=== PATIENT | male | born 1965 | race American Indian/Alaskan Native ===

== ENCOUNTER 2018-05-25 10:18 | Emergency (ER) | payer OTHER ==
--- NOTE | 2018-05-25 11:22 | ER ---
Nurse's Notes [facility] Name: Tirso Resendez Age: 52 yrs Sex: Male : 1965 Arrival Date: 05/25/2018 Time: 10:19 Bed 11 Private MD: Diagnosis: Injury of muscle, fascia and tendon of other parts of biceps Presentation: 05/25 10:29 Presenting complaint: Patient states: L arm pain x 3 weeks, states that pain was ph radiating from L neck down L arm but now only c/o L upper arm pain, denies injury, no redness or swelling noted. Transition of care: patient was not received from another setting of care. Onset of symptoms was May 25, 2018. Risk Assessment: Do you want to hurt yourself or someone else? Patient reports no desire to harm self or others. Initial Sepsis Screen: Does the patient meet any 2 criteria? No. Patient's initial sepsis screen is negative. Does the patient have a suspected source of infection? No. Patient's initial sepsis screen is negative. Care prior to arrival: None. 10:29 Method Of Arrival: Ambulatory ph 10:29 Acuity: ASHLEY 4 ph Historical: - Allergies: 10:35 No Known Allergies; ph - Home Meds: 10:35 amlodipine oral [Active]; ph - PMHx: 10:35 Hypertension; ph - Immunization history:: Adult Immunizations unknown. - Social history:: Smoking status: unknown. - Ebola Screening: : No symptoms or risks identified at this time. Screenin:11 Abuse screen: Denies threats or abuse. Denies injuries from another. Nutritional ph screening: No deficits noted. Tuberculosis screening: No symptoms or risk factors identified. Fall Risk None identified. Assessment: 11:10 General: Appears in no apparent distress. comfortable, slender, well groomed, Behavior ph is calm, cooperative, appropriate for age. Pain: Complains of pain in left bicep. Neuro: Level of Consciousness is awake, alert, obeys commands, Oriented to person, place, time, situation. Cardiovascular: Capillary refill < 3 seconds in bilateral fingers Patient's skin is warm and dry. Pulses are palpable in right radial artery and left radial artery. Respiratory: Airway is patent Respiratory effort is even, unlabored, Denies shortness of breath. Derm: Skin is intact, is healthy with good turgor, Skin is pink, warm \T\ dry. Musculoskeletal: Circulation, motion, and sensation intact. Range of motion: intact in all extremities. Vital Signs: 10:35 BP 154 / 87; Pulse 73; Resp 18; Temp 97.8; Pulse Ox 98% on R/A; ph ED Course: 10:19 Patient arrived in ED. as 10:32 Triage completed. ph 10:33 Blanka Justin RN is Primary Nurse. ph 10:36 Arm band placed on Patient placed in an exam room. ph 10:56 Silviano Bazzi MD is Attending Physician. gs 11:11 Patient has correct armband on for positive identification. Bed in low position. Call ph light in reach. 11:12 No provider procedures requiring assistance completed. Patient did not have IV access ph during this emergency room visit. 11:20 Benigno Crowley MD is Referral Physician. gs Administered Medications: No medications were administered Outcome: 11:22 Discharge ordered by . 11:37 Discharged to home ambulatory. 11:37 Condition: good 11:37 Discharge instructions given to patient, Instructed on discharge instructions, follow up and referral plans. medication usage, Demonstrated understanding of instructions, follow-up care, medications, Prescriptions given X 1. 11:38 Patient left the ED. ss Signatures: Vicki Trivedi Shelby, RN RN Blanka Justin RN RN Silviano Bazzi MD MD
--- NOTE | 2018-05-25 11:22 | EDPHYS ---
Physician Documentation [facility] Name: Tirso Resendez Age: 52 yrs Sex: Male : 1965 Arrival Date: 05/25/2018 Time: 10:19 Bed 11 Private MD: ED Physician Silviano Bazzi HPI: 05/25 11:13 This 52 yrs old Male presents to ER via Ambulatory with complaints of Shoulder Pain, gs Neck Pain, >24Hrs Old. 11:13 The patient or guardian complains of an injury, pain. left shoulder and left bicep. gs Context: resulted from lifting or carrying. Onset: The symptoms/episode began/occurred 3 week(s) ago. Modifying factors: The symptoms are aggravated by lifting weight, movement. Associated signs and symptoms: Pertinent negatives: Numbness in left arm. Severity of symptoms: At their worst the symptoms were moderate, in the emergency department the symptoms are unchanged. The patient has experienced similar episodes in the past, a few times. The patient has been recently seen by a physician: 2 week(s) ago, with similar presenting complaints, X-rays were performed, outside ED. Historical: - Allergies: 10:35 No Known Allergies; ph - Home Meds: 10:35 amlodipine oral [Active]; ph - PMHx: 10:35 Hypertension; ph - Immunization history:: Adult Immunizations unknown. - Social history:: Smoking status: unknown. - Ebola Screening: : No symptoms or risks identified at this time. ROS: 11:13 All other systems are negative. gs Exam: 11:13 Head/Face: Normocephalic, atraumatic. Eyes: Pupils equal round and reactive to light, gs extra-ocular motions intact. Lids and lashes normal. Conjunctiva and sclera are non-icteric and not injected. Cornea within normal limits. Periorbital areas with no swelling, redness, or edema. ENT: Nares patent. No nasal discharge, no septal abnormalities noted. Tympanic membranes are normal and external auditory canals are clear. Oropharynx with no redness, swelling, or masses, exudates, or evidence of obstruction, uvula midline. Mucous membranes moist. Neck: Trachea midline, no thyromegaly or masses palpated, and no cervical lymphadenopathy. Supple, full range of motion without nuchal rigidity, or vertebral point tenderness. No Meningismus. Chest/axilla: Normal chest wall appearance and motion. Nontender with no deformity. No lesions are appreciated. Cardiovascular: Regular rate and rhythm with a normal S1 and S2. No gallops, murmurs, or rubs. Normal PMI, no JVD. No pulse deficits. Respiratory: Lungs have equal breath sounds bilaterally, clear to auscultation and percussion. No rales, rhonchi or wheezes noted. No increased work of breathing, no retractions or nasal flaring. Abdomen/GI: Soft, non-tender, with normal bowel sounds. No distension or tympany. No guarding or rebound. No evidence of tenderness throughout. Back: No spinal tenderness. No costovertebral tenderness. Full range of motion. Skin: Warm, dry with normal turgor. Normal color with no rashes, no lesions, and no evidence of cellulitis. Neuro: Awake and alert, GCS 15, oriented to person, place, time, and situation. Cranial nerves II-XII grossly intact. Motor strength 5/5 in all extremities. Sensory grossly intact. Cerebellar exam normal. Normal gait. 11:13 Constitutional: The patient appears alert, awake. 11:13 Musculoskeletal/extremity: Extremities: noted in the left bicep: tenderness, There is no evidence of swelling, ROM: full active range of motion, full passive range of motion, Pulses: are normal with no appreciated deficits, Sensation intact. Joints: All joints appear normal with full range of motion. DVT Exam: No signs of deep vein thrombosis. Vital Signs: 10:35 BP 154 / 87; Pulse 73; Resp 18; Temp 97.8; Pulse Ox 98% on R/A; ph MDM: 11:12 Patient medically screened. gs 11:13 Differential diagnosis: tendonitis, strain. Data reviewed: vital signs, nurses notes. gs Administered Medications: No medications were administered Disposition: 05/25/18 11:22 Discharged to Home. Impression: Injury of muscle, fascia and tendon of other parts of biceps. - Condition is Stable. - Discharge Instructions: Muscle Pain, Adult. - Prescriptions for Naprosyn 500 mg Oral Tablet - take 1 tablet by ORAL route 2 times per day As needed take with food; 30 tablet. - Medication Reconciliation Form, Thank You Letter, Antibiotic Education, Prescription Opioid Use form. - Follow up: Benigno Crowley MD; When: 2 - 3 days; Reason: Re-evaluation by your physician. Signatures: Naomie Schmidt RN RN ss Blanka Justin RN RN Silviano Bazzi MD MD gs Corrections: (The following items were deleted from the chart) 11:38 11:22 05/25/2018 11:22 Discharged to Home. Impression: Injury of muscle, fascia and ss tendon of other parts of biceps. Condition is Stable. Forms are Medication Reconciliation Form, Thank You Letter, Antibiotic Education, Prescription Opioid Use. Follow up: Dr. Benigno Crowley; When: 2 - 3 days; Reason: Re-evaluation by your physician. gs
== END 2018-05-25 11:38 | disposition home or self-care (01) ==
LOC: ER 10:18
DX: S46.202A Unspecified injury of muscle, fascia and tendon of other parts of biceps, left arm, initial encounter (principal); I10 Essential (primary) hypertension; X50.9XXA Other and unspecified overexertion or strenuous movements or postures, initial encounter; Y92.9 Unspecified place or not applicable
CPT/HCPCS: 99282